=== PATIENT | male | born 1950 | race Caucasian/White ===

== ENCOUNTER 2022-07-08 08:36 | Outpatient (CLI) | payer MEDICARE, BC ==
[2022-07-08] MEDS ORDERED: Magnevist 469MG/ML 20 ML VIAL ONE (09:24)
== END 2022-07-08 08:37 | disposition home or self-care (01) ==
LOC: CSHMRI 08:36
PROVIDERS: ATTEND Urology
DX: R97.20 Elevated prostate specific antigen [PSA] (principal)
CPT/HCPCS: 72197; 82565